=== PATIENT | female | born 1950 | race Caucasian/White ===

== ENCOUNTER 2017-10-20 16:55 | Emergency (ER) | payer MEDICARE, MEDICAID ==
[~2017-10-20] VITALS: Ht 162.6 cm; Wt 70.0 kg
[2017-10-20 17:06] VITALS: BP 106/70
[2017-10-20 18:03] LABS: BASOPHILS % 1.4 % (0.0-2.0); EOSINOPHILS % 5.6 % (0.0-5.0); HEMATOCRIT. 40.4 % (36.0-48.0); MEAN CORPUSCULAR HEMOGLOBIN 32.2 pg (28.0-32.0); MEAN CORPUSCULAR VOLUME 92.8 fL (81.0-99.0); MEAN PLATELET VOLUME 8.9 fl (7.4-10.4); MONOCYTES % 5.1 % (2.0-8.0); NEUTROPHILS % 51.9 % (40.0-76.0); PLATELET 223 x1000/uL (130-400); RED BLOOD CELL COUNT 4.35 mill/uL (4.2-5.4); RED CELL DISTRIBUTION WIDTH 13.8 % (11.6-14.6)
[2017-10-20 18:09] LABS: CHLORIDE 107 mEq/L (98-107)
[2017-10-20 18:13] LABS: ETHANOL BLOOD 283 mg/dL
== END 2017-10-20 21:00 | disposition home or self-care (01) ==
LOC: ER 17:35
DX: F10.129 Alcohol abuse with intoxication, unspecified (principal); Y90.8 Blood alcohol level of 240 mg/100 ml or more; F12.10 Cannabis abuse, uncomplicated
CPT/HCPCS: 36415; 80053; 85025; 99284; G0482